=== PATIENT | male | born 1950 | race Caucasian/White ===

== ENCOUNTER → 2023-03-12 13:01 | Outpatient (BNVA) | payer MEDICARE, SELFPAY | PROVIDERS: PCP Nurse Practitioner Family; Visit Provider Internal Medicine | DX: M86.172 Other acute osteomyelitis, left ankle and foot (principal); B95.61 Methicillin susceptible Staphylococcus aureus infection as the cause of diseases classified elsewhere | CPT/HCPCS: 99202 ==

== ENCOUNTER → 2023-03-20 08:24 | Day surgery (SDC) | payer MEDICARE, SELFPAY ==
--- NOTE | 2023-03-20 10:43 | P.PICC_ITS ---
PICC Line Insertion NPICC Diagnosis: Osteomyelitis Indication: senior living antibiotics Pertinent Labs: Reviewed Technique: Following informed consent including risks, benefits and alternatives and using sterile technique including cap and mask, sterile gown, glove and drape, the left arm was prepped and draped in the usual sterile fashion of full barrier technique with CHG. Following completion of [place] Protocol the skin and soft tissues were anesthetized with 1% Lidocaine plain. Using ultrasound guidance, the left basilic vein access was obtained in a single attempt by this RN. Over an 0.018 wire through peel-away sheath, a 4 moroccan single lumen PASV PICC line was positioned. Catheter length is 46 cm internal length, 0 cm external length, for a total trimmed length of 46 cm. The procedure was performed in S272. Tip verification was performed by Deepak Valderrama with Sherlock 3CG. Tip located in SVC. Ultrasound was used to document vein patency and for needle entry. A formal ultrasound picture and cardiac rhythm strip was recorded. [facility]ist has released the line for use and it is currently dressed with a StatLock, Tegaderm, and CHG disc. Verification has been performed for blood return and line patency. Arm Circumference: 36 cm Equipment: Rollstream PowerPICC Solo Catheter with Sherlock 3CG Catheter Type: 4 moroccan single lumen PASV PICC Lot #: [id number]
== END ==
PROVIDERS: PCP Nurse Practitioner Family; Visit Provider Internal Medicine
DX: M86.172 Other acute osteomyelitis, left ankle and foot (principal); M86.9 Osteomyelitis, unspecified
CPT/HCPCS: 36573; C1751; J1335

== ENCOUNTER 2023-03-20 10:40 | Outpatient (REF) | payer MEDICARE, SELFPAY | END 2023-03-20 10:41 | disposition home or self-care (01) | LOC: HO.MDS 10:40 | PROVIDERS: Visit Provider Internal Medicine | DX: Z45.2 Encounter for adjustment and management of vascular access device (principal) | CPT/HCPCS: J1335 ==

== ENCOUNTER 2023-03-21 13:35 | Outpatient (REF) | payer MEDICARE, SELFPAY | END 2023-03-21 13:36 | disposition home or self-care (01) | LOC: HO.MDS 13:35 | PROVIDERS: Visit Provider Internal Medicine | DX: M86.10 Other acute osteomyelitis, unspecified site (principal) | CPT/HCPCS: 96365; J1335 ==

== ENCOUNTER 2023-03-22 09:49 | Outpatient (REF) | payer MEDICARE, SELFPAY | END 2023-03-22 09:50 | disposition home or self-care (01) | LOC: HO.MDS 09:49 | PROVIDERS: PCP Nurse Practitioner Family; Visit Provider Internal Medicine | DX: M86.10 Other acute osteomyelitis, unspecified site (principal) | CPT/HCPCS: 96365; J1335 ==

== ENCOUNTER 2023-03-23 09:43 | Outpatient (REF) | payer MEDICARE, SELFPAY | END 2023-03-23 09:44 | disposition home or self-care (01) | LOC: HO.MDS 09:43 | PROVIDERS: Visit Provider Internal Medicine | DX: M86.10 Other acute osteomyelitis, unspecified site (principal) | CPT/HCPCS: 96365; J1335 ==

== ENCOUNTER 2023-03-24 12:45 | Outpatient (REF) | payer MEDICARE, SELFPAY | END 2023-03-24 12:46 | disposition home or self-care (01) | LOC: HO.MDS 12:45 | PROVIDERS: Visit Provider Internal Medicine | DX: M86.172 Other acute osteomyelitis, left ankle and foot (principal) | CPT/HCPCS: 96365; J1335 ==

== ENCOUNTER 2023-03-25 09:49 | Outpatient (REF) | payer MEDICARE, SELFPAY | END 2023-03-25 09:50 | disposition home or self-care (01) | LOC: HO.MDS 09:49 | PROVIDERS: Visit Provider Internal Medicine | DX: M86.10 Other acute osteomyelitis, unspecified site (principal) | CPT/HCPCS: 96365; J1335 ==

== ENCOUNTER 2023-03-26 11:25 | Outpatient (REF) | payer MEDICARE, SELFPAY | END 2023-03-26 11:26 | disposition home or self-care (01) | LOC: HO.MDS 11:25 | PROVIDERS: Visit Provider Internal Medicine | DX: M86.10 Other acute osteomyelitis, unspecified site (principal) | CPT/HCPCS: 96365; 99212; J1335 ==

== ENCOUNTER 2023-03-26 13:07 | Outpatient (AMB) | payer MEDICARE, SELFPAY ==
[2023-03-26 13:13] VITALS: BP 128/80; PULSE 84; O2SAT 98
--- NOTE | 2023-03-26 13:13 | A.OFFVIS_ITS ---
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 Lower paraplegia Neurogenic bladder Osteomyelitis Review of Systems Const All systems reviewed & are unremarkable except as noted in HPI and below Physical Exam Vital Signs: Last Vital Signs Pulse 84 03/26/23 13:13 BP 128/80 03/26/23 13:13 Pulse Ox 98 03/26/23 13:13 HEENT Head: Yes normal to inspection Resp Effort & Inspection: normal respiratory effort Cardio Rate: regular rate Rhythm: regular rhythm GI Inspection: Yes normal to inspection Extrem Other: open area foot Assessment & Plan Assessment & Plan (1) Acute osteomyelitis of left calcaneus: Comment: MSSA No allergies He has no complaints Code(s): M86.172 - Other acute osteomyelitis, left ankle and foot Plan: Continue antibiotics. See as scheduled. Coding Level of Care Code Est Pt Level 3 (39381) Diagnoses Acute osteomyelitis of left calcaneus M86.172
== END 2023-03-26 13:47 | disposition home or self-care (01) ==
LOC: HO.HID 13:07
PROVIDERS: PCP Nurse Practitioner Family; Visit Provider Internal Medicine
DX: M86.172 Other acute osteomyelitis, left ankle and foot (principal)
CPT/HCPCS: 99213

== ENCOUNTER 2023-03-27 12:55 | Outpatient (REF) | payer MEDICARE, SELFPAY | END 2023-03-27 12:56 | disposition home or self-care (01) | LOC: HO.MDS 12:55 | PROVIDERS: Visit Provider Internal Medicine | DX: M86.10 Other acute osteomyelitis, unspecified site (principal) | CPT/HCPCS: 96365; J1335 ==

== ENCOUNTER 2023-03-28 12:55 | Outpatient (REF) | payer MEDICARE, SELFPAY | END 2023-03-28 12:56 | disposition home or self-care (01) | LOC: HO.MDS 12:55 | PROVIDERS: Visit Provider Internal Medicine | DX: M86.10 Other acute osteomyelitis, unspecified site (principal) | CPT/HCPCS: 96365; J1335 ==

== ENCOUNTER 2023-03-29 09:46 | Outpatient (REF) | payer MEDICARE, SELFPAY | END 2023-03-29 09:47 | disposition home or self-care (01) | LOC: HO.MDS 09:46 | PROVIDERS: PCP Nurse Practitioner Family; Visit Provider Internal Medicine | DX: M86.10 Other acute osteomyelitis, unspecified site (principal) | CPT/HCPCS: 96365; J1335 ==

== ENCOUNTER 2023-03-30 11:11 | Outpatient (REF) | payer MEDICARE, SELFPAY | END 2023-03-30 11:12 | disposition home or self-care (01) | LOC: HO.MDS 11:11 | PROVIDERS: Visit Provider Internal Medicine | DX: M86.10 Other acute osteomyelitis, unspecified site (principal) | CPT/HCPCS: 96374; J1335 ==

== ENCOUNTER 2023-03-31 12:58 | Outpatient (REF) | payer MEDICARE, SELFPAY | END 2023-03-31 12:59 | disposition home or self-care (01) | LOC: HO.MDS 12:58 | PROVIDERS: Visit Provider Internal Medicine | DX: M86.9 Osteomyelitis, unspecified (principal) | CPT/HCPCS: 96365; J1335 ==

== ENCOUNTER 2023-04-01 12:56 | Outpatient (REF) | payer MEDICARE, SELFPAY | END 2023-04-01 12:57 | disposition home or self-care (01) | LOC: HO.MDS 12:56 | PROVIDERS: Visit Provider Internal Medicine | DX: M86.9 Osteomyelitis, unspecified (principal) | CPT/HCPCS: 96365; J1335 ==

== ENCOUNTER 2023-04-02 12:47 | Outpatient (REF) | payer MEDICARE, SELFPAY | END 2023-04-02 12:48 | disposition home or self-care (01) | LOC: HO.MDS 12:47 | PROVIDERS: Visit Provider Internal Medicine | DX: M86.172 Other acute osteomyelitis, left ankle and foot (principal) | CPT/HCPCS: 96365; J1335 ==

== ENCOUNTER 2023-04-03 12:55 | Outpatient (REF) | payer MEDICARE, SELFPAY | END 2023-04-03 12:56 | disposition home or self-care (01) | LOC: HO.MDS 12:55 | PROVIDERS: Visit Provider Internal Medicine | DX: M86.172 Other acute osteomyelitis, left ankle and foot (principal) | CPT/HCPCS: 96365; J1335 ==

== ENCOUNTER 2023-04-04 12:52 | Outpatient (REF) | payer MEDICARE, SELFPAY | END 2023-04-04 12:53 | disposition home or self-care (01) | LOC: HO.MDS 12:52 | PROVIDERS: Visit Provider Internal Medicine | DX: M86.172 Other acute osteomyelitis, left ankle and foot (principal) | CPT/HCPCS: 96365; J1335 ==

== ENCOUNTER 2023-04-05 09:48 | Outpatient (REF) | payer MEDICARE, SELFPAY | END 2023-04-05 09:49 | disposition home or self-care (01) | LOC: HO.MDS 09:48 | PROVIDERS: Visit Provider Internal Medicine | DX: M86.172 Other acute osteomyelitis, left ankle and foot (principal) | CPT/HCPCS: 96365; J1335 ==

== ENCOUNTER 2023-04-06 09:54 | Outpatient (REF) | payer MEDICARE, SELFPAY | END 2023-04-06 09:55 | disposition home or self-care (01) | LOC: HO.MDS 09:54 | PROVIDERS: Visit Provider Internal Medicine | DX: M86.172 Other acute osteomyelitis, left ankle and foot (principal) | CPT/HCPCS: 96365; J1335 ==

== ENCOUNTER 2023-04-07 12:54 | Outpatient (REF) | payer MEDICARE, SELFPAY | END 2023-04-07 12:55 | disposition home or self-care (01) | LOC: HO.MDS 12:54 | PROVIDERS: Visit Provider Internal Medicine | DX: M86.172 Other acute osteomyelitis, left ankle and foot (principal) | CPT/HCPCS: 96365; J1335 ==

== ENCOUNTER 2023-04-08 12:58 | Outpatient (REF) | payer MEDICARE, SELFPAY | END 2023-04-08 12:59 | disposition home or self-care (01) | LOC: HO.MDS 12:58 | PROVIDERS: Visit Provider Internal Medicine | DX: M86.9 Osteomyelitis, unspecified (principal) | CPT/HCPCS: 96365; J1335 ==

== ENCOUNTER 2023-04-09 12:56 | Outpatient (REF) | payer MEDICARE, SELFPAY | END 2023-04-09 12:57 | disposition home or self-care (01) | LOC: HO.MDS 12:56 | PROVIDERS: Visit Provider Internal Medicine | DX: M86.9 Osteomyelitis, unspecified (principal) | CPT/HCPCS: 96365; J1335 ==

== ENCOUNTER 2023-04-10 12:55 | Outpatient (REF) | payer MEDICARE, SELFPAY | END 2023-04-10 12:56 | disposition home or self-care (01) | LOC: HO.MDS 12:55 | PROVIDERS: Visit Provider Internal Medicine | DX: M86.172 Other acute osteomyelitis, left ankle and foot (principal) | CPT/HCPCS: 96365; J1335 ==

== ENCOUNTER 2023-04-11 12:56 | Outpatient (REF) | payer MEDICARE, SELFPAY | END 2023-04-11 12:57 | disposition home or self-care (01) | LOC: HO.MDS 12:56 | PROVIDERS: Visit Provider Internal Medicine | DX: M86.9 Osteomyelitis, unspecified (principal) | CPT/HCPCS: 96374; J1335 ==

== ENCOUNTER 2023-04-12 09:56 | Outpatient (REF) | payer MEDICARE, SELFPAY | END 2023-04-12 09:57 | disposition home or self-care (01) | LOC: HO.MDS 09:56 | PROVIDERS: PCP Nurse Practitioner Family; Visit Provider Internal Medicine | DX: M86.9 Osteomyelitis, unspecified (principal) | CPT/HCPCS: 96365; J1335 ==

== ENCOUNTER 2023-04-13 09:55 | Outpatient (REF) | payer MEDICARE, SELFPAY | END 2023-04-13 09:56 | disposition home or self-care (01) | LOC: HO.MDS 09:55 | PROVIDERS: Visit Provider Internal Medicine | DX: M86.9 Osteomyelitis, unspecified (principal) | CPT/HCPCS: 96365; J1335 ==

== ENCOUNTER 2023-04-14 12:56 | Outpatient (REF) | payer MEDICARE, SELFPAY | END 2023-04-14 12:57 | disposition home or self-care (01) | LOC: HO.MDS 12:56 | PROVIDERS: Visit Provider Internal Medicine | DX: M86.172 Other acute osteomyelitis, left ankle and foot (principal) | CPT/HCPCS: 96365; J1335 ==

== ENCOUNTER 2023-04-15 12:57 | Outpatient (REF) | payer MEDICARE, SELFPAY | END 2023-04-15 12:58 | disposition home or self-care (01) | LOC: HO.MDS 12:57 | PROVIDERS: Visit Provider Internal Medicine | DX: M86.472 Chronic osteomyelitis with draining sinus, left ankle and foot (principal) | CPT/HCPCS: 96365; J1335 ==

== ENCOUNTER 2023-04-16 12:57 | Outpatient (REF) | payer MEDICARE, SELFPAY | END 2023-04-16 12:58 | disposition home or self-care (01) | LOC: HO.MDS 12:57 | PROVIDERS: Visit Provider Internal Medicine | DX: M86.172 Other acute osteomyelitis, left ankle and foot (principal) | CPT/HCPCS: 96365; J1335 ==

== ENCOUNTER 2023-04-17 12:47 | Outpatient (REF) | payer MEDICARE, SELFPAY | END 2023-04-17 12:48 | disposition home or self-care (01) | LOC: HO.MDS 12:47 | PROVIDERS: Visit Provider Internal Medicine | DX: M86.9 Osteomyelitis, unspecified (principal) | CPT/HCPCS: 96365; J1335 ==

== ENCOUNTER 2023-04-18 12:54 | Outpatient (REF) | payer MEDICARE, SELFPAY | END 2023-04-18 12:55 | disposition home or self-care (01) | LOC: HO.MDS 12:54 | PROVIDERS: Visit Provider Internal Medicine | DX: M86.172 Other acute osteomyelitis, left ankle and foot (principal) | CPT/HCPCS: 96365; J1335 ==

== ENCOUNTER 2023-04-19 09:55 | Outpatient (REF) | payer MEDICARE, SELFPAY | END 2023-04-19 09:56 | disposition home or self-care (01) | LOC: HO.MDS 09:55 | PROVIDERS: Visit Provider Internal Medicine | DX: M86.9 Osteomyelitis, unspecified (principal) | CPT/HCPCS: 96365; J1335 ==

== ENCOUNTER 2023-04-20 09:55 | Outpatient (REF) | payer MEDICARE, SELFPAY | END 2023-04-20 09:56 | disposition home or self-care (01) | LOC: HO.MDS 09:55 | PROVIDERS: Visit Provider Internal Medicine | DX: M86.9 Osteomyelitis, unspecified (principal) | CPT/HCPCS: 96365; J1335 ==

== ENCOUNTER 2023-04-21 11:27 | Outpatient (REF) | payer MEDICARE, SELFPAY | END 2023-04-21 11:28 | disposition home or self-care (01) | LOC: HO.MDS 11:27 | PROVIDERS: Visit Provider Internal Medicine | DX: M86.9 Osteomyelitis, unspecified (principal) | CPT/HCPCS: 96365; 99212; J1335 ==

== ENCOUNTER 2023-04-21 13:14 | Outpatient (AMB) | payer MEDICARE, SELFPAY ==
[2023-04-21 14:09] VITALS: BP 132/76; PULSE 80; O2SAT 96
--- NOTE | 2023-04-21 14:09 | MHC.OFFVIS ---
Intake Vital Signs 04/21/23 14:09 BP 132/76 Pulse 80 Pulse Oximetry (%) 96 Intake Visit Reasons: ertapenem day 33 picc line f/u Tape Stringer Required: No Allergies poison vern extract [POISON VERN] Allergy (Mild, Verified 04/21/23 14:10) HIVES adhesive tape Allergy (Unknown, Verified 04/21/23 14:10) Unknown HPI ertapenem day 33 picc line f/u HPI Details He is finishing antibiotics on 04/30. He feels better. [facility] Medical History Acute osteomyelitis of left calcaneus AVM (arteriovenous malformation) spine Chronic indwelling Thorpe catheter Colostomy in place Lower paraplegia Neurogenic bladder Osteomyelitis Review of Systems Const All systems reviewed & are unremarkable except as noted in HPI and below Physical Exam Vital Signs: Last Vital Signs Pulse 80 04/21/23 14:09 BP 132/76 04/21/23 14:09 Pulse Ox 96 04/21/23 14:09 Const Other: General: cooperative Orientation/consciousness: patient oriented x3 HEENT Head: Yes normal to inspection Mouth: Normal oral and palatal mucosa present Eyes General: appearance normal, both eyes and all related structures Pupils: Equal, round and reactive pupils present Resp Effort & Inspection: normal respiratory effort Cardio Rate: regular rate Rhythm: regular rhythm GI Palpation (GI): Soft to palpation and nontender General: Yes no CVA tenderness Back/Spine/Pelvis Back: no CVA tenderness Skin General skin exam: no rashes or lesions noted Neuro General: patient oriented x3 Cranial nerves: Yes CN's II-XII intact bilaterally and Yes Equal, round and reactive pupils present Extrem General: Yes normal to inspection Psych Appearance: grossly normal Assessment & Plan Assessment & Plan (1) Acute osteomyelitis of left calcaneus: Comment: MSSA No allergies He has no complaints Code(s): M86.172 - Other acute osteomyelitis, left ankle and foot Plan Finish antibiotics. Remove line. Orders: Orders IR cvc remove any age Today M86.9 - Osteomyelitis, unspecified Coding Level of Care Code Est Pt Level 3 (98365) Diagnoses Acute osteomyelitis of left calcaneus M86.172
== END 2023-04-21 14:54 | disposition home or self-care (01) ==
LOC: HO.HID 13:14
PROVIDERS: Visit Provider Internal Medicine
DX: M86.172 Other acute osteomyelitis, left ankle and foot (principal)
CPT/HCPCS: 99213

== ENCOUNTER 2023-04-22 12:52 | Outpatient (REF) | payer MEDICARE, SELFPAY | END 2023-04-22 12:53 | disposition home or self-care (01) | LOC: HO.MDS 12:52 | PROVIDERS: Visit Provider Internal Medicine | DX: M86.9 Osteomyelitis, unspecified (principal) | CPT/HCPCS: 96365; J1335 ==

== ENCOUNTER 2023-04-23 12:56 | Outpatient (REF) | payer MEDICARE, SELFPAY | END 2023-04-23 12:57 | disposition home or self-care (01) | LOC: HO.MDS 12:56 | PROVIDERS: Visit Provider Internal Medicine | DX: M86.9 Osteomyelitis, unspecified (principal) | CPT/HCPCS: 96365; J1335 ==

== ENCOUNTER 2023-04-24 12:59 | Outpatient (REF) | payer MEDICARE, SELFPAY | END 2023-04-24 13:00 | disposition home or self-care (01) | LOC: HO.MDS 12:59 | PROVIDERS: Visit Provider Internal Medicine | DX: M86.9 Osteomyelitis, unspecified (principal) | CPT/HCPCS: 96365; J1335 ==

== ENCOUNTER 2023-04-25 12:56 | Outpatient (REF) | payer MEDICARE, SELFPAY | END 2023-04-25 12:57 | disposition home or self-care (01) | LOC: HO.MDS 12:56 | PROVIDERS: Visit Provider Internal Medicine | DX: M86.172 Other acute osteomyelitis, left ankle and foot (principal) | CPT/HCPCS: 96365; J1335 ==

== ENCOUNTER 2023-04-26 09:53 | Outpatient (REF) | payer MEDICARE, SELFPAY | END 2023-04-26 09:54 | disposition home or self-care (01) | LOC: HO.MDS 09:53 | PROVIDERS: PCP Nurse Practitioner Family; Visit Provider Internal Medicine | DX: M86.9 Osteomyelitis, unspecified (principal) | CPT/HCPCS: 96365; J1335 ==

== ENCOUNTER 2023-04-27 09:55 | Outpatient (REF) | payer MEDICARE, SELFPAY | END 2023-04-27 09:56 | disposition home or self-care (01) | LOC: HO.MDS 09:55 | PROVIDERS: PCP Nurse Practitioner Family; Visit Provider Internal Medicine | DX: M86.172 Other acute osteomyelitis, left ankle and foot (principal) | CPT/HCPCS: 96365; J1335 ==

== ENCOUNTER 2023-04-28 12:56 | Outpatient (REF) | payer MEDICARE, SELFPAY | END 2023-04-28 12:57 | disposition home or self-care (01) | LOC: HO.MDS 12:56 | PROVIDERS: Visit Provider Internal Medicine | DX: M86.9 Osteomyelitis, unspecified (principal) | CPT/HCPCS: 96365; J1335 ==

== ENCOUNTER 2023-04-29 12:57 | Outpatient (REF) | payer MEDICARE, SELFPAY | END 2023-04-29 12:58 | disposition home or self-care (01) | LOC: HO.MDS 12:57 | PROVIDERS: Visit Provider Internal Medicine | DX: M86.9 Osteomyelitis, unspecified (principal) | CPT/HCPCS: 96365; J1335 ==

== ENCOUNTER 2023-04-30 12:54 | Outpatient (REF) | payer MEDICARE, SELFPAY ==
--- NOTE | 2023-04-30 15:58 | HO.REMOVAL ---
Removal of PICC/Midline Removal of PICC/Midline: Removal of PICC/Midline:late entry 1. Date: 04/30/2013 at 1335 2. Reason removed: Antibiotic treatment complete per MD order 3. Inserted length: 46 cm 4. Removed length: 46 cm 5. A dressing was placed over the site upon removal. No edema or bleeding at the site.
== END 2023-04-30 12:55 | disposition home or self-care (01) ==
LOC: HO.MDS 12:54
PROVIDERS: Visit Provider Internal Medicine
DX: M86.172 Other acute osteomyelitis, left ankle and foot (principal)
CPT/HCPCS: 96365; J1335

== ENCOUNTER 2023-09-25 12:53 | Outpatient (RCR) | payer MEDICARE, SELFPAY ==
--- NOTE | ~2023-09-25 | XR_ITS ---
EXAMINATION: XR PELVIS CLINICAL INFORMATION: Nonhealing wound right ischium, rule out osteomyelitis. COMPARISON: 05/31/2019 radiograph pelvis. TECHNIQUE: 2 AP views of the pelvis. FINDINGS: Degenerative changes in the imaged lower lumbar spine. Degenerative changes in the bilateral sacroiliac joints. Redemonstration of displaced, comminuted fracture of the right femoral neck. Femoral head appears to articulate with the acetabulum on limited views provided, but appears more attenuated, likely due to interval surgical intervention. Increased sclerosis with patchy cystic lucencies and degenerative changes at the right hip. Moderate degenerative changes on AP views of the left hip. The bones are diffusely demineralized with possible increased lucencies in the region of the ischium related to overlying soft tissue/air, or increased demineralization, although correlation with clinical exam is recommended given stated history of concern for osteomyelitis of the right ischium. MRI should be considered for further evaluation. XR/XR pelvis 1-2V IMPRESSION: 1. The bones are diffusely demineralized with possible increased lucencies in the region of the ischium related to overlying soft tissue/air, or increased demineralization, although correlation with clinical exam is recommended given stated history of concern for osteomyelitis of the right ischium. MRI should be considered for further evaluation. 2. Redemonstration of displaced, comminuted fracture of the right femoral neck. Femoral head appears to articulate with the acetabulum on limited views provided, but appears more attenuated, likely due to interval surgical intervention.
== END 2024-02-12 09:00 | disposition other institution (70) ==
LOC: HO.WCC 12:53
PROVIDERS: PCP Nurse Practitioner Family; Visit Provider Surgery
DX: L89.314 Pressure ulcer of right buttock, stage 4 (principal); L97.423 Non-pressure chronic ulcer of left heel and midfoot with necrosis of muscle; T81.31XA Disruption of external operation (surgical) wound, not elsewhere classified, initial encounter; G90.09 Other idiopathic peripheral autonomic neuropathy; G82.21 Paraplegia, complete; Z79.899 Other long term (current) drug therapy
CPT/HCPCS: 11042; 11043; 11045; 11046; 72170; 87070; 87077; 87186; 87205; 97597; 97598; 99213